=== PATIENT | female | born 1990 | race Caucasian/White ===

== ENCOUNTER 2017-11-08 11:30 | Outpatient (CLI) | END 2017-11-08 14:37 | disposition home or self-care (01) ==

== ENCOUNTER 2017-11-14 18:04 | Outpatient (CLI) | END 2017-11-14 22:32 | disposition home or self-care (01) ==

== ENCOUNTER 2017-11-23 16:21 | Outpatient (CLI) | END 2017-11-23 18:08 | disposition home or self-care (01) ==

== ENCOUNTER 2017-12-15 10:52 | Outpatient (CLI) | END 2017-12-15 16:00 | disposition home or self-care (01) ==

== ENCOUNTER 2017-12-16 08:45 | Inpatient (IN) | END 2017-12-22 16:59 | disposition home or self-care (01) | DRG 775 ==